=== PATIENT | female | born 1960 | race Caucasian/White ===

== ENCOUNTER → 2017-10-07 | Outpatient (CLI) | payer OTHER | END | disposition home or self-care (01) | LOC: CFH 11:10 | PROVIDERS: ATTEND Specialist | DX: Z12.31 Encounter for screening mammogram for malignant neoplasm of breast (principal) | CPT/HCPCS: 77067 ==

== ENCOUNTER 2018-10-06 13:45 | Outpatient (CLI) | payer OTHER ==
[2018-10-06] MEDS ORDERED: L.AC1CAP6 PO (15:07)
[2018-10-06] MEDS ORDERED: MULT1CAP19 PO (15:07)
[2018-10-06] MEDS ORDERED: ESCI10TA10 PO (15:07)
[2018-10-06] MEDS ORDERED: ECHI80CA PO (15:07)
[2018-10-06] MEDS ORDERED: ASCO500C10 PO (15:07)
[2018-10-06] MEDS ORDERED: MELA1TAB6 PO (15:07)
[2018-10-06 15:16] LABS: BASOPHILS # (AUTO) 0.02 x10^3/uL (0-0.1); BASOPHILS % (AUTO) 0 % (0-1); EOSINOPHILS # (AUTO) 0.08 x10^3/uL (0-0.4); EOSINOPHILS % (AUTO) 1 % (1-7); LYMPHOCYTES # (AUTO) 1.54 x10^3/uL (1-3.4); LYMPHOCYTES % (AUTO) 26 % (22-44); MD NO; MEAN CORPUSCULAR HEMOGLOBIN 32.5 pg (27.0-34.8); MEAN CORPUSCULAR HGB CONC 33.5 g/dL (32.4-35.8); MEAN PLATELET VOLUME 7.4 fL (7.4-10.4); MONOCYTES # (AUTO) 0.52 x10^3/uL (0.2-0.8); MONOCYTES % (AUTO) 9 % (2-9); NEUTROPHILS # (AUTO) 3.87 x10^3/uL (1.8-6.8); NEUTROPHILS % (AUTO) 64 % (42-75); PLATELET COUNT 239 x10^3/uL (130-400); RED BLOOD COUNT 4.58 x10^6/uL (3.82-5.3); RED CELL DISTRIBUTION WIDTH 13.2 % (9.6-15.2)
[2018-10-06 15:29] LABS: INTERNATIONAL NORMALIZED RATIO 0.91 (0.93-1.1); PROTHROMBIN TIME 9.6 Seconds (9.6-11.5)
[2018-10-06 16:19] LABS: ALANINE AMINOTRANSFERASE 22 U/L (12-78); ALBUMIN 3.9 g/dL (3.4-5.0); ANION GAP 7 mmol/L (5-15); CALCIUM 8.9 mg/dL (8.5-10.1); CHLORIDE 104 mmol/L (98-107); CREATININE 0.74 mg/dL (0.55-1.02)
[2018-10-06 16:21] LABS: ALKALINE PHOSPHATASE 89 U/L (45-117); BILIRUBIN,TOTAL 0.4 mg/dL (0.2-1.0); TOTAL PROTEIN 6.9 g/dL (6.4-8.2)
== END 2018-10-06 23:59 | disposition home or self-care (01) ==
LOC: STAR 13:45
PROVIDERS: ATTEND Specialist
DX: Z01.811 Encounter for preprocedural respiratory examination (principal); R19.02 Left upper quadrant abdominal swelling, mass and lump; Z90.710 Acquired absence of both cervix and uterus
CPT/HCPCS: 36415; 71046; 80053; 85025; 85610; 85730; 86336; 93005

== ENCOUNTER 2018-10-11 07:47 | Day surgery (SDC) | payer OTHER ==
[2018-10-06 14:26] VITALS: BP 106/69
[~2018-10-11] VITALS: Ht 176.5 cm; Wt 86.6 kg
[~2018-10-11 07:47] MED LIST: ASCO500C10 PO; BUPIVACAINE/PF 0.25% ONE; ECHI80CA PO; ESCI10TA10 PO; HEPARIN 1,000 UNITS/ML, 10ML ONE; L.AC1CAP6 PO; MELA1TAB6 PO; MULT1CAP19 PO
[2018-10-11] MEDS ORDERED: LACTATED RINGERS 1,000 ML IV SCH (08:03)
[2018-10-11] MEDS ORDERED: FENTANYL PF 250 MCG/5ML ONE (09:09)
[2018-10-11] MEDS ORDERED: MIDAZOLAM 1 MG/ML, 2ML ONE (09:09)
[2018-10-11] MEDS ORDERED: ROCURONIUM 10MG/ML,5ML ONE (09:10)
[2018-10-11] MEDS ORDERED: PROPOFOL 10 MG/ML, 20ML ONE (09:10)
[2018-10-11] MEDS ORDERED: NEOSTIGMINE 1 MG/ML, 10ML ONE (09:10)
[2018-10-11] MEDS ORDERED: GLYCOPYRROLATE 0.2MG/1ML, 5ML ONE (09:10)
[2018-10-11] MEDS ORDERED: DEXAMETHASONE 4 MG/ML, 1ML ONE (09:10)
[2018-10-11] MEDS ORDERED: CEFAZOLIN 1,000 MG ONE (09:10)
[2018-10-11] MEDS ORDERED: ONDANSETRON 2MG/ML, 2ML ONE (09:10)
[2018-10-11] MEDS ORDERED: SUCCINYLCHOLINE 20 MG/ML, 10ML ONE (09:10)
[2018-10-11] MEDS ORDERED: LIDOCAINE 2% 100MG/5ML SYRINGE ONE (09:22)
[2018-10-11] MEDS ORDERED: ONDANSETRON 2MG/ML, 2ML IV PRN (10:00)
[2018-10-11] MEDS ORDERED: ONDANSETRON ODT 8 MG PO PRN (10:00)
[2018-10-11] MEDS ORDERED: PROMETHAZINE 25 MG SUPP PR PRN (10:00)
[2018-10-11] MEDS ORDERED: OXYcodone 5 MG/5 ML ORAL.SOL UDC PO PRN (10:00)
[2018-10-11] MEDS ORDERED: PROMETHAZINE 25 MG/ML, 1ML IV PRN (10:00)
[2018-10-11] MEDS ORDERED: ACETAMINOPHEN 325 MG TABLET PO PRN (10:00)
[2018-10-11] MEDS ORDERED: HYDROmorphone 2 MG/ML, 1ML IVPush PRN (10:00)
[2018-10-11] MEDS ORDERED: FENTANYL PF 100 MCG/2ML IV PRN (10:00)
[2018-10-11] MEDS ORDERED: OXYcodone 5 MG/5 ML ORAL.SOL UDC ONE (11:26)
[2018-10-11] MEDS ORDERED: FENTANYL PF 100 MCG/2ML ONE (11:26)
== END 2018-10-11 14:32 | disposition home or self-care (01) ==
LOC: OR 07:47
PROVIDERS: ATTEND Specialist
DX: D27.1 Benign neoplasm of left ovary (principal); N80.0 Endometriosis of uterus; N88.8 Other specified noninflammatory disorders of cervix uteri; D25.9 Leiomyoma of uterus, unspecified; N83.311 Acquired atrophy of right ovary; F32.9 Major depressive disorder, single episode, unspecified; Z72.89 Other problems related to lifestyle; Z79.899 Other long term (current) drug therapy; Z85.3 Personal history of malignant neoplasm of breast; Z98.890 Other specified postprocedural states; Z80.3 Family history of malignant neoplasm of breast
CPT/HCPCS: 36415; 58552; 86850; 86900; 86923; 88307; 88313; 88331; 88341; 88342; J0330; J0690; J1100; J1644; J2250; J2405; J2704; J2710; J3010; J3490; J7120; S2900

== ENCOUNTER → 2020-09-22 | Outpatient (CLI) | payer OTHER ==
[~2020-09-22] MED LIST changes: -BUPIVACAINE/PF 0.25% ONE; -HEPARIN 1,000 UNITS/ML, 10ML ONE; +MELA1TAB46 PO; -MELA1TAB6 PO
== END | disposition home or self-care (01) ==
LOC: RAD 09:03
PROVIDERS: ATTEND Physician Assistant Surgical
DX: S92.312A Displaced fracture of first metatarsal bone, left foot, initial encounter for closed fracture (principal); S82.832A Other fracture of upper and lower end of left fibula, initial encounter for closed fracture; S92.902A Unspecified fracture of left foot, initial encounter for closed fracture; X58.XXXA Exposure to other specified factors, initial encounter; Y93.9 Activity, unspecified; Y92.89 Other specified places as the place of occurrence of the external cause; Y99.8 Other external cause status